=== PATIENT | male | born 1985 | race Caucasian/White ===

== ENCOUNTER 2023-02-11 14:00 | Emergency (ER) | payer SELFPAY ==
--- NOTE | 2023-02-11 14:02 | XRR_ITS ---
PROCEDURE INFORMATION: Exam: XR Left Shoulder Exam date and time: 02/11/2023 2:41 PM Age: 37 years old Clinical indication: Injury or trauma; Fall; Blunt trauma (contusions or hematomas); Shoulder; Left; Additional info: Inj, pain TECHNIQUE: Imaging protocol: Radiologic exam of the left shoulder. Views: 2 or more views. COMPARISON: No relevant prior studies available. FINDINGS: Bones/joints: Anterior dislocation of the left shoulder. No acute fracture identified. Lungs: Visualized lung field is clear. Soft tissues: Superficial soft tissues are normal. XR/XR shoulder LT min 2V* [id number] IMPRESSION: Anterior dislocation of the left shoulder.
--- NOTE | 2023-02-11 14:27 | W.ED.UPPEXIN ---
HPI - Extremity Injury (Upper) General: Chief Complaint: Extremity Injury, Upper Stated Complaint: LT shoulder inj Time Seen by Provider: 02/11/23 14:02 Source: patient Mode of arrival: ambulatory Limitations: no limitations History of Present Illness: 37-year-old male states that he is kayaking and he had fell onto his left side on the ground. He states he fell on his left shoulder he had severe shoulder pain since then he is unable to move his arm and his worried he may have dislocated his shoulder he rates his pain a 8 out of 10 much worse with movement. He denies any other injuries denies hitting his head. Associated symptoms: Denies neck pain Review of Systems Const: Denies: fever(s) or chills ENMT: Denies: throat pain or dental pain Card: Denies: chest pain Resp: Denies: dyspnea GI: Denies: abdominal pain, nausea, vomiting or diarrhea Musc: Reports: extremity pain; Denies: neck pain or back pain Skin/Breast: Denies: rash Neuro: Denies: headache(s) Physical Exam Const: COMMON NORMALS: no acute distress and patient oriented x3 HENMT: COMMON NORMALS: normocephalic and atraumatic HEAD & SCALP: normocephalic and atraumatic Eye: COMMON NORMALS: conjunctivae normal CONJUNCTIVA: Yes conjunctivae normal Neck/C-Spine: COMMON NORMALS: supple Chest: COMMONS NORMALS: normal inspection of the chest Resp: COMMON NORMALS: normal respiratory effort Extremity: OTHER: Tenderness noted to left shoulder unable to move his arm without severe pain Neuro: COMMON NORMALS: patient oriented x3 Psych: COMMON NORMALS: mental status grossly normal Skin: COMMON NORMALS: no rashes or lesions noted GENERAL SKIN EXAM: no rashes or lesions noted Procedures Orthopedic Joint Reduction Joint #1: Time Out Performed: Yes Side: left Joint Reduction Location: shoulder Analgesia: procedural sedation Shoulder Technique Used (if applicable): traction/counter-traction Post-reduction neuro exam: intact Post-reduction vascular: intact Post Reduction X-Ray Obtained: Yes Post Reduction X-Ray Results: reduced Splint Applied: Yes Patient Tolerated Procedure: well Procedural Sedation Indication: fracture/dislocation reduction ASA Class: I Time of Last PO Intake: 11:00 Preparation: color television console monitor applied and pulse oximeter IV Propofol dose (mg): 200 Patient Tolerated Procedure: well Complications: none Course Vital Signs: Vital signs: Vital Signs Temperature 99.1 F 02/11/23 15:05 Pulse Rate 83 02/11/23 15:35 Respiratory Rate 17 02/11/23 15:35 Blood Pressure 185/111 02/11/23 15:35 Pulse Oximetry 98 02/11/23 15:35 Oxygen Delivery Me thod Room Air 02/11/23 15:35 MDM - Extremity Injury (Upper) Medical Decision Making Patient presents here with shoulder dislocation to the left shoulder was able to reduce patient placed in shoulder immobilizer he lives in [place] he is to follow-up with the orthopedist there return if worsening he had no other injuries he is stable for discharge Medical Records I reviewed the patient's medical records. Lab Data Radiology Impressions Shoulder X-Ray 02/11/23 15:21 IMPRESSION: Shoulder appears reduced on this single view. XR interpretation done by ED provider, pending radiology final review ED provider radiology interpretation(s): left shoulder dislocation Discharge Plan Discharge Patient Disposition: Home Clinical Impression: Dislocation of shoulder region Qualifiers: Encounter type: initial encounter Laterality: left Qualified Code(s): S43.005A - Unspecified dislocation of left shoulder joint, initial encounter Condition: Stable Prescriptions: New Naprosyn 500 mg tablet 500 mg PO BID PRN (Reason: pain) Qty: 20 0RF Discharge Orders: Discharge ED (Routine); Ordered 02/11/23 Ordered By: Kandace Méndez Referrals: Miguelina Greenberg APRN [Primary Care Provider] - Discharge Diet: Advance as tolerated Discharge Activity: Resume usual activity Patient Instructions: Shoulder Dislocation (ED), Closed Reduction (ED) Coding Level of Care Code ED Credit Controller for Stephane Ramirez
[2023-02-11 14:31] VITALS: BP 193/141; PULSE 90; RESP 16; TEMP 36.6; O2SAT 95; BMI 44.3
[2023-02-11] MEDS: ketorolac 60 mg/2 mL INJ IM (14:45)
[2023-02-11 15:05] VITALS: BP 206/137; PULSE 87; RESP 18; TEMP 37.3; O2SAT 94
--- NOTE | 2023-02-11 15:19 | PC.PHAR ---
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
--- NOTE | 2023-02-11 15:21 | XRR_ITS ---
PROCEDURE INFORMATION: Exam: XR Left Shoulder Exam date and time: 02/11/2023 3:27 PM Age: 37 years old Clinical indication: Injury or trauma; Fall; Blunt trauma (contusions or hematomas); Shoulder; Left; Additional info: Post reduction TECHNIQUE: Imaging protocol: Radiologic exam of the left shoulder. Views: Single or more views. COMPARISON: CR (CHEST, ) 02/11/2023 2:41 PM FINDINGS: Bones/joints: Shoulder appears reduced on this single view. No displaced fracture identified. Soft tissues: Superficial soft tissues are normal. XR/XR shoulder LT min 2V* [id number] IMPRESSION: Shoulder appears reduced on this single view.
[2023-02-11] MEDS: propofol 10 mg/mL SDV 20 mL 100 MG IVP (15:33)
[2023-02-11 15:35] VITALS: BP 185/111; PULSE 83; RESP 17; O2SAT 98
[2023-02-11 16:16] VITALS: BP 194/117; PULSE 85; RESP 17; O2SAT 94
== END 2023-02-11 16:17 | disposition home or self-care (01) ==
PROVIDERS: Emergency Provider Emergency Medicine; PCP Registered Nurse
DX: S43.005A Unspecified dislocation of left shoulder joint, initial encounter (principal); W19.XXXA Unspecified fall, initial encounter; Y93.16 Activity, rowing, canoeing, kayaking, rafting and tubing
CPT/HCPCS: 23650; 73030; 94799; 96372; 99152; 99284; J1885; J2704